=== PATIENT | female | born 1955 | race Caucasian/White ===

== ENCOUNTER 2017-03-07 16:34 | Emergency (ER) | payer OTHER ==
[~2017-03-07] VITALS: Ht 172.7 cm; Wt 83.5 kg
[~2017-03-07 16:34] MED LIST: IBUPROFEN800 MG PO; KEFLEX500 MG; NORCO 10-325 T1 EACH PO; NORCO 5-325 TA1 EACH; PAXIL20 MG PO; PERCOCET 5-3251 EACH PO; PROMETHAZINE HC25 M1 PO; TYLENOL EXTRA500 MG PO
[2017-03-07] MEDS ORDERED: KETOROLAC TROME10 MG PO (18:02)
== END 2017-03-07 18:18 | disposition home or self-care (01) ==
LOC: ED 16:34
DX: M25.562 Pain in left knee (principal); Z88.0 Allergy status to penicillin; Z88.8 Allergy status to other drugs, medicaments and biological substances; Z88.2 Allergy status to sulfonamides
CPT/HCPCS: 99283